=== PATIENT | female | born 1975 | race Caucasian/White ===

== ENCOUNTER 2017-11-29 01:17 | Emergency (ER) | payer BC ==
[~2017-11-29] VITALS: Ht 165.1 cm; Wt 67.2 kg
[2017-11-29 01:49] VITALS: Ht 165.1 cm; Wt 67.2 kg
[2017-11-29 03:57] VITALS: BP 117/70
== END 2017-11-29 03:57 | disposition home or self-care (01) ==
LOC: ED 01:17
DX: S16.1XXA Strain of muscle, fascia and tendon at neck level, initial encounter (principal); V43.52XA Car driver injured in collision with other type car in traffic accident, initial encounter; Y93.I9 Activity, other involving external motion; Y92.411 Interstate highway as the place of occurrence of the external cause; Y99.8 Other external cause status
CPT/HCPCS: J1885